=== PATIENT | male | born 1980 | race Caucasian/White ===

== ENCOUNTER → 2016-08-22 | Day surgery (SDC) | payer OTHER, BC ==
[~2016-08-22] MED LIST: Acetaminophen/HYDROcodone 325-5 MG Tab PO ONE; Bupivacaine 0.25% 30 ML SDV ONE; EPINEPHrine 1 MG/ML 30 ML MDV ONE; HYDROmorphone 0.5 MG/0.5 ML Syringe IVPUSH PRN; HYDROmorphone 1 MG/ML Syringe ONE; Lactated Ringers 1,000 ML IV SCH; Lactated Ringers 1,000 ML ONE; Lidocaine 1% 4 ML ONE; Lidocaine 1%/Sod Bicarbonate in NS 8.4% 1 ML Syringe PRN; Meperidine PF 50 MG/ML Syringe IVPUSH PRN; Midazolam 1 MG/ML 2 ML SDV ONE; Ondansetron 4 MG/2 ML SDV IVPUSH PRN; Ondansetron 4 MG/2 ML SDV ONE; Propofol 200 MG/20 ML SDV ONE; Sodium Chloride 0.9% 10 ML Syringe FLUSH PRN; ceFAZolin 1 GM Vial ONE; diphenhydrAMINE 50 MG/ML SDV IVPUSH PRN; fentaNYL 100 MCG/2 ML SDV IVPUSH PRN; fentaNYL 250 MCG/5 ML SDV ONE
--- NOTE | 2016-08-22 12:07 | PCM.PREANE ---
Preanesthetic Assessment - Anesthesia/Transfusion/Family Hx Anesthesia History: Prior Anesthesia Without Reaction Family History of Anesthesia Reaction: No Transfusion History: No Prior Transfusion(s) - Review of Systems General: No Symptoms Pulmonary: No Symptoms Cardiovascular: No Symptoms Gastrointestinal: No symptoms Neurological: No Symptoms Other: Reports: None - Physical Assessment NPO Status Date: 08/21/16 NPO Status Time: 23:55 Pulse: 70 O2 Sat by Pulse Oximetry: 98 Respiratory Rate: 18 Blood Pressure: 141/69 Temperature: 97.5 C Vital Signs: Last Vital Signs Temp 36.4 C 08/22/16 10:30 Pulse 70 08/22/16 10:30 Resp 18 08/22/16 10:30 BP 141/69 H 08/22/16 10:30 Pulse Ox 98 08/22/16 10:30 Height: 1.75 m Weight: 82.554 kg ASA Class: 2 Mental Status: Alert & Oriented x3 Airway Class: Mallampati = 1 Dentition: Reports: Normal Dentition Thyro-Mental Finger Breadths: 3 Mouth Opening Finger Breadths: 3 ROM/Head Extension: Full Lungs: Clear to auscultation, Normal respiratory effort Cardiovascular: Regular Rate, Regular Rhythm - Lab Values: Laboratory Last Values MRSA (PCR) Negative 08/09/16 11:39 - Allergies Allergies/Adverse Reactions: Allergies Allergy/AdvReac Type Severity Reaction Status Date / Time No Known Allergies Allergy Verified 06/09/15 22:35 - Anesthesia Plan Pre-Op Medication Ordered: None - Acknowledgements Anesthesia Type Planned: General Anesthesia Pt an Appropriate Candidate for the Planned Anesthesia: Yes Alternatives and Risks of Anesthesia Discussed w Pt/Guardian: Yes Pt/Guardian Understands and Agrees with Anesthesia Plan: Yes PreAnesthesia Questionnaire - Past Health History Medical/Surgical History: Denies Medical/Surgical History Musculoskeletal History: Reports: Other (See Below) Other Musculoskeletal History: R acl sprain - Past Surgical History HEENT Surgical History: Reports: Oral Surgery, Other (See Below) Other HEENT Surgeries/Procedures: wisdom teeth Musculoskeletal Surgical History: Reports: Other (See Below) Other Musculoskeletal Surgeries/Procedures:: right thump plate(orif) - SUBSTANCE USE Smoking Status *Q: Never Smoker Tobacco Use Within Last Twelve Months: Snuff/Dip Second Hand Smoke Exposure: No Days Per Week of Alcohol Use: 1 Number of Drinks Per Day: 0 Total Drinks Per Week: 0 Recreational Drug Use History: No - HOME MEDS Home Medications: Home Meds Multivitamin [Multivitamins] 1 cap PO DAILY 08/21/16 [History] - CURRENT (IN HOUSE) MEDS Current Meds: Current Medications Lactated Ringer's (Ringers, Lactated) 1,000 mls @ 125 mls/hr IV ASDIRECTED DAVID Stop: 08/22/16 23:00 Lidocaine/Sodium Bicarbonate (Buffered Lidocaine 1% In Ns 8.4%) 0.25 ml .XX ONETIME PRN PRN Reason: Prior to IV Start Stop: 08/22/16 18:00 Sodium Chloride (Saline Flush) 10 ml FLUSH ASDIRECTED PRN PRN Reason: Keep Vein Open Stop: 08/22/16 18:00
--- NOTE | 2016-08-22 15:16 | PCM.POSTAN ---
POST ANESTHESIA ASSESSMENT - MENTAL STATUS Mental Status: somnolent - VITAL SIGNS Pulse Rate: 68 SaO2: 94 Resp Rate: 11 Blood Pressure: 134/76 Temperature: 36.9 C - RESPIRATORY Respiratory Status: respiratory rate WNL, airway patent, O2 saturation stable, supplemental oxygen - CARDIOVASCULAR CV Status: pulse rate WNL, blood pressure stable - GASTROINTESTINAL GI Status: no symptoms - PAIN Pain Score: 0 - POST OP HYDRATION Hydration Status: adequate & stable
[2016-08-22 16:45] VITALS: BP 154/86
--- NOTE | 2016-08-23 07:50 | PCM.OPNOTE ---
- General Post-Op/Procedure Note Date of Surgery/Procedure: 08/22/16 Operative Procedure(s): right knee video arthroscopy with ACL allograft reconstruction Pre Op Diagnosis: right knee ACL rupture Post-Op Diagnosis: Same Anesthesia Technique: General LMA, Local Primary Surgeon: Amilcar Gary Anesthesia Provider: Austin Morel Field Coordinator: Caterina Sanchez Field Coordinator: Renate Carter EBL in mLs: 5 Complications: None Condition: Good Free Text/Narrative:: Intake & Output 08/22/16 08/23/16 08/23/16 22:59 06:59 14:59 Intake Total 500 Balance 500
--- NOTE | 2016-08-23 08:47 | OR ---
DATE OF OPERATION: 08/22/2016 SURGEON: Amilcar Gary MD OPERATION PERFORMED: Right knee video arthroscopy with anterior tibialis anterior cruciate ligament allograft reconstruction. PREOPERATIVE DIAGNOSIS: Right knee anterior cruciate ligament rupture. POSTOPERATIVE DIAGNOSIS: Right knee anterior cruciate ligament rupture. ANESTHESIA: General LMA with local. ANESTHESIA PROVIDER: Austin Morel. ASSISTANTS: Caterina Sanchez PA-C and Renate Carter LPN ESTIMATED BLOOD LOSS: 5 mL COMPLICATIONS: None. CONDITION: Stable. DESCRIPTION OF PROCEDURE: The patient was identified in the preop holding area. Proper site was marked and identified by the surgeon. The patient at that time decided he would like allograft reconstruction. The risks and benefits were again discussed with the patient. The patient was then taken back to the operating theater where after adequate anesthesia, the patient's right lower extremity was placed in a C-clamp otero after a nonsterile tourniquet was applied. The left lower extremity was placed in a well-leg otero and placed in a dependent position. Right lower extremity was then sterilely prepped and draped in usual sterile fashion. OR time-out was performed. The patient received 2 g IV Ancef. At this time, right lower extremity was exsanguinated and tourniquet was then inflated to 300 mmHg. Standard anterolateral portal was then created. Scope trocar was introduced. The patient had no significant chondromalacia noted at the patellofemoral joint. There were no loose foreign bodies in mediolateral gutter. Attention was turned to the medial compartment and anteromedial portal was then created with the use of a spinal needle. Medial compartment showed no signs of chondromalacia and no medial meniscus tear. In the notch, there was noted to be a completely disrupted ACL off the femoral side. On the lateral side, no chondromalacia and no lateral meniscus tear was noted. At this time, the graft was opened on the back table and Caterina Sanchez PA-C and Renate Carter LPN then whipstitched both sides of the graft for a creation of the allograft tendon, putting an Endobutton on the femoral side for fixation. While this was going on, the notch was cleared of the old ACL fibers. The tibial drill guide was then placed at 55 degrees. It was placed in the center of the old footprint. Guide pin was then placed after incision was made on the medial side of the tibia and guide pin was placed. A 9-mm reamer was then used for the tibial side. The FlipCutter set at 105 degrees was then introduced to the femoral side. This was placed on the posterior rim of the lateral femoral condyle and a 9-mm FlipCutter was then placed. It was found to be in adequate position and was brought back to a tunnel length of 25 mm. Excess bone was then removed from inside the joint. Graft was then passed up through the tibia into the femur and the Endobutton was flipped on the femoral side. C-arm fluoroscopy showed that the Endobutton was flipped in adequate position. This graft was then shuttled up into the femoral tunnel and was found to have adequate fixation in the femoral tunnel. Tension was applied to the graft and it was brought through a 20 cycles of range of motion of the knee. The patient had full extension and flexion with no blocked motion. There was no impingement noted on either the lateral femoral wall or the PCL. At this time, 4 5 screw with a washer was placed through the tibia and on the tibial side, the limbs of the suture were tied around the washer and the screw and this was then tightened. The patient had negative anterior drawer and the graft was found to have good tension. Adequate saline was irrigated through the wounds. Vicryl and Monocryl sutures used for closure of the skin. The patient was placed in a sterile soft dressing and a knee brace. The patient tolerated the procedure well and sent to PACU in stable condition. BUNNY /[id number]
--- NOTE | 2016-08-23 09:40 | CR ---
Right knee: Two fluoroscopic spot views were obtained of the right knee. Study obtained utilizing C-arm device. Comparison: Previous right knee radiograph of 06/06/16. Study shows findings of ACL repair. Fluoroscopy time is given as 3.7 seconds. Impression: 1. Procedural study as described above. Diagnostic code #2
== END | disposition home or self-care (01) ==
LOC: JD.SDS 10:23
PROVIDERS: ATTEND Orthopaedic Surgery
PROC: 0MQN4ZZ Repair Right Knee Bursa and Ligament, Percutaneous Endoscopic Approach (ICD-10-PCS; principal; 2016-08-22)
DX: S83.511D Sprain of anterior cruciate ligament of right knee, subsequent encounter (principal); Z98.890 Other specified postprocedural states
CPT/HCPCS: 29888; 76000; 87641; A9270; C1713; C1762; C1776; J0171; J0690; J1170; J2250; J2405; J3010; J7120; 01400; J2704; J3490

== ENCOUNTER 2019-04-11 10:06 | Emergency (ER) | payer BC, SELFPAY ==
[2019-04-11 10:41] VITALS: BP 125/72; PULSE 67
--- NOTE | 2019-04-11 12:05 | EDM.PDOC ---
ED HPI GENERAL MEDICAL PROBLEM - General Chief Complaint: Respiratory Problem Stated Complaint: RUNNY NOSE/CONGESTION/COUGH Time Seen by Provider: 04/11/19 11:05 Source of Information: Reports: Patient History Limitations: Reports: No Limitations - History of Present Illness INITIAL COMMENTS - FREE TEXT/NARRATIVE: Patient is a 38-year-old male who presents with complaints of dry cough, congestion, and generalized malaise for the last week. He denies any fever, however he has had chills intermittently. He does have some bilateral ear pain. Denies any significant shortness of breath. Has no history of asthma or other lung pathology. - Related Data Allergies Allergy/AdvReac Type Severity Reaction Status Date / Time No Known Allergies Allergy Verified 04/11/19 10:36 Home Meds: Home Meds Multivitamin [Multivitamins] 1 cap PO DAILY 08/21/16 [History] Codeine/Promethazine [Phenergan with Codeine] 5 ml PO Q4HR PRN #100 ml 04/11/19 [Rx] Past Medical History - Past Health History Medical/Surgical History: Denies Medical/Surgical History Musculoskeletal History: Reports: Other (See Below) Other Musculoskeletal History: R acl sprain - Past Surgical History HEENT Surgical History: Reports: Oral Surgery, Other (See Below) Other HEENT Surgeries/Procedures: wisdom teeth Musculoskeletal Surgical History: Reports: Other (See Below) Other Musculoskeletal Surgeries/Procedures:: right thump plate(orif) Social & Family History - Tobacco Use Smoking Status *Q: Current Every Day Smoker Years of Tobacco use: 20 Packs/Tins Daily: 0.5 - Caffeine Use Caffeine Use: Reports: Coffee - Recreational Drug Use Recreational Drug Use: No ED ROS GENERAL - Review of Systems Review Of Systems: Comprehensive ROS is negative, except as noted in HPI. ED EXAM, GENERAL - Physical Exam Exam: See Below Exam Limited By: No Limitations General Appearance: Alert, WD/WN, No Apparent Distress Ears: Normal External Exam, Normal Canal, Hearing Grossly Normal, Normal TMs Throat/Mouth: Normal Inspection, Normal Lips, Normal Teeth, Normal Gums, Normal Oropharynx, Normal Voice, No Airway Compromise Respiratory/Chest: No Respiratory Distress, Lungs Clear, Normal Breath Sounds, No Accessory Muscle Use, Chest Non-Tender Cardiovascular: Normal Peripheral Pulses, Regular Rate, Rhythm, No Edema, No Gallop, No JVD, No Murmur, No Rub GI/Abdominal: Normal Bowel Sounds, Soft, Non-Tender, No Organomegaly, No Distention, No Abnormal Bruit, No Mass Neurological: Alert, Oriented, CN II-XII Intact, Normal Cognition, Normal Gait, Normal Reflexes, No Motor/Sensory Deficits Psychiatric: Normal Affect, Normal Mood Skin Exam: Warm, Dry, Intact, Normal Color, No Rash Course - Vital Signs Last Recorded V/S: Last Vital Signs Temp 97.4 F 04/11/19 10:37 Pulse 67 04/11/19 10:37 Resp 12 04/11/19 10:37 BP 125/72 04/11/19 10:37 Pulse Ox 96 04/11/19 10:37 - Orders/Labs/Meds Orders: Active Orders 24 hr Category Date Time Status Chest 2V [CR] Stat Exams 04/11/19 11:26 Taken - Re-Assessments/Exams Free Text/Narrative Re-Assessment/Exam: 04/11/19 12:23 Chest x-ray was negative for any infiltrates. Influenza screen was also negative. Patient likely has a viral bronchitis. We will send a prescription for Phenergan with codeine for cough to [facility]. Discharge instructions as documented. Departure - Departure Time of Disposition: 12:23 Disposition: Home, Self-Care 01 Condition: Fair Clinical Impression: Viral illness - Discharge Information Prescriptions: Codeine/Promethazine [Phenergan with Codeine] 5 ml PO Q4HR PRN #100 ml PRN Reason: Cough Referrals: Kenneth Ruby Jr, MD [Primary Care Provider] - Forms: ED Department Discharge Additional Instructions: You were seen in the emergency department today for cough for the last week as well as congestion. Chest x-ray did not show any signs of pneumonia. Your influenza screen was negative. It is likely that you are suffering from a viral bronchitis. Symptoms of this illness generally take 10 to 14 days to resolve. A prescription for Phenergan with codeine for cough has been sent to [facility]. He may use this medication as prescribed for cough. Please be aware that it can be sedating so you should not drive or work after taking the medication. If you should experience any worsening symptoms or fail to improve as expected, please do not hesitate to return to the emergency department or follow-up with your primary care provider. Sepsis Event Note - Evaluation Sepsis Screening Result: No Definite Risk - Focused Exam Vital Signs: Vital Signs Temp Pulse Resp BP Pulse Ox 04/11/19 10:37 97.4 F 67 12 125/72 96 Date Exam was Performed: 04/11/19 Time Exam was Performed: 12:23 - My Orders Last 24 Hours: My Active Orders 04/11/19 11:26 Chest 2V [CR] Stat - Assessment/Plan Last 24 Hours: My Active Orders 04/11/19 11:26 Chest 2V [CR] Stat
--- NOTE | 2019-04-11 12:39 | CR ---
Chest: 2 views of the chest were obtained. Comparison: No prior chest imaging is available. Heart size and mediastinum are normal. Lungs are clear with no acute parenchymal change. Bony structures appear within normal limits. Impression: 1. Nothing acute is identified on 2 view chest x-ray. Diagnostic code #1 This report was dictated in [place] Standard Time
== END 2019-04-11 12:40 | disposition home or self-care (01) ==
LOC: JD.ED 10:06
DX: B34.9 Viral infection, unspecified (principal); F17.210 Nicotine dependence, cigarettes, uncomplicated
CPT/HCPCS: 71046; 71046-26; 87804; 99283; 99283-25

== ENCOUNTER 2019-06-18 04:09 | Emergency (ER) | payer BC, OTHER, SELFPAY ==
[2019-06-18] MEDS ORDERED: Ondansetron 4 MG/2 ML SDV IVPUSH ONE (04:36)
[2019-06-18] MEDS ORDERED: HYDROmorphone 1 MG/ML Syringe IVPUSH STA (04:36)
[2019-06-18] MEDS ORDERED: LORazepam 2 MG/ML SDV IVPUSH STA (04:37)
--- NOTE | 2019-06-18 04:43 | EDM.PDOC ---
ED HPI GENERAL MEDICAL PROBLEM - General Chief Complaint: Abdominal Pain Stated Complaint: abdominal pain Time Seen by Provider: 06/18/19 04:24 Source of Information: Reports: Patient History Limitations: Reports: No Limitations - History of Present Illness INITIAL COMMENTS - FREE TEXT/NARRATIVE: Mr. Cárdenas is a very pleasant 38-year-old man with no chronic medical problems, who now presents the ED stating that he developed sudden-onset generalized abdominal pain around 03:10 this morning, just after he urinated. He states that there is a constant pain whose character he cannot describe, as well as a sharp pain that comes and goes. When present, the sharp pain lasts only a few seconds. Initially, it came about every 20 minutes, but its frequency has since increased to about every 5 minutes. He experienced 2 episodes of the sharp pain in my presence. He states that the pain radiates up into his lower chest and down to his penis. No associated nausea, vomiting, constipation, diarrhea, or urinary symptoms. The patient states that he took 400 mg of [id number] ibuprofen around 03: 30. The patient states that he had a similar symptoms several years ago. Review of prior medical records finds that the patient was seen in this ED on 06/09/2015 with a complaint at that time of severe mid abdominal pain radiating up as well as down to his testicles. He reported at that time that he had had a similar episode about 10 years prior, given some morphine, and sent home without a cause being found. On examination, he was found to be tender all over his abdomen, with the greatest tenderness in the right lower quadrant. His pain seemed to be worse when he was made supine, improved when made recumbent. He was noted to be quite anxious. Work-up included a CBC, CMP, and CT of the abdomen and pelvis with oral and IV contrast. His work-up was entirely unremarkable. He was discharged home with a prescription for Levsin. Here in the ED, the patient appears to be very anxious. He is hemodynamically stable, afebrile, saturating 100% on room air. The patient's PCP is Dr. Kenneth Ruby. His Orthopedic Surgeon is Dr. Amilcar Gary. Abdomen Pain Score (Numeric/FACES): 10 - Related Data Allergies Allergy/AdvReac Type Severity Reaction Status Date / Time No Known Allergies Allergy Verified 06/18/19 04:22 Home Meds: Home Meds Multivitamin [Multivitamins] 1 cap PO DAILY 08/21/16 [History] Past Medical History - Past Surgical History HEENT Surgical History: Reports: Oral Surgery (3 wisdom teeth extracted) Musculoskeletal Surgical History: Reports: Arthroscopic Knee (right), ORIF ( right thumb) Social & Family History - Tobacco Use Smoking Status *Q: Never Smoker Tobacco Use Within Last Twelve Months: Smokeless Tobacco (Chews about 1/2 can per day) - Caffeine Use Caffeine Use: Reports: Coffee - Alcohol Use Alcohol Use History: Yes Alcohol Use Frequency: Socially - Recreational Drug Use Recreational Drug Use: No - Living Situation & Occupation Living situation: Reports: , with Spouse, Other (1 child) Occupation: Employed (Teacher) ED ROS GENERAL - Review of Systems Review Of Systems: Comprehensive ROS is negative, except as noted in HPI. ED EXAM, GI/ABD - Physical Exam Exam: See Below Exam Limited By: No Limitations General Appearance: Alert, WD/WN, Anxious (Very) Eyes: Bilateral: Normal Appearance, EOMI Ears: Normal External Exam, Hearing Grossly Normal Nose: Normal Inspection Throat/Mouth: Normal Inspection, Normal Lips, Normal Voice, No Airway Compromise Head: Atraumatic, Normocephalic Neck: Normal Inspection, Full Range of Motion Respiratory/Chest: No Respiratory Distress, Lungs Clear, Normal Breath Sounds, No Accessory Muscle Use, Chest Non-Tender Cardiovascular: Normal Peripheral Pulses, Regular Rate, Rhythm, No Edema, No Gallop, No JVD, No Murmur, No Rub GI/Abdominal Exam: Normal Bowel Sounds, Soft, No Organomegaly, No Distention, No Abnormal Bruit, No Mass, Tender (Generalized tenderness, but exquisite, with guarding in the epigastrium) (Male) Exam: Deferred Rectal (Males) Exam: Deferred Back Exam: Normal Inspection, Full Range of Motion. No: CVA Tenderness (L), CVA Tenderness (R) Extremities: Normal Inspection, Normal Range of Motion, No Pedal Edema, Normal Capillary Refill Neurological: Alert, Oriented, Normal Cognition, No Motor/Sensory Deficits Psychiatric: Anxious Skin Exam: Warm, Dry, Intact, Normal Color, No Rash Course - Vital Signs Last Recorded V/S: Last Vital Signs Temp 36.1 C 06/18/19 04:18 Pulse 78 06/18/19 04:18 Resp 20 06/18/19 04:18 BP 143/84 H 06/18/19 04:18 Pulse Ox 100 06/18/19 04:18 - Orders/Labs/Meds Orders: Active Orders 24 hr Category Date Time Status Sodium Chloride 0.9% [Normal Saline] 1,000 ml Med 06/18/19 04:45 Active IV ASDIRECTED Medication Orders Sodium Chloride (Normal Saline) 1,000 mls @ 150 mls/hr IV ASDIRECTED DAVID Last Admin: 06/18/19 04:46 Dose: 150 mls/hr Labs: Laboratory Tests 06/18/19 06/18/19 06/18/19 Range/Units 04: 04:20 07:30 WBC 7.28 (4.23-9.07) K/mm3 RBC 5.00 (4.63-6.08) M/mm3 Hgb 16.4 (13.7-17.5) gm/dl Hct 46.6 (40.1-51.0) % MCV 93.2 H (79.0-92.2) fl MCH 32.8 H (25.7-32.2) pg MCHC 35.2 (32.2-35.5) g/dl RDW Std Deviation 41.2 (35.1-43.9) fL Plt Count 311 (163-337) K/mm3 MPV 9.6 (9.4-12.3) fl Neutrophils % (Manual) 34 L (40-60) % Band Neutrophils % 0 (0-10) % Lymphocytes % (Manual) 38 (20-40) % Atypical Lymphs % 17 % Monocytes % (Manual) 10 (2-10) % Eosinophils % (Manual) 1 (0.8-7.0) % Basophils % (Manual) 0 L (0.2-1.2) Platelet Estimate Adequate Plt Morphology Comment Normal RBC Morph Comment Normal Sodium 142 (136-145) mEq/L Potassium 3.2 L (3.5-5.1) mEq/L Chloride 104 (98-107) mEq/L Carbon Dioxide 23 (21-32) mEq/L Anion Gap 18.2 H (5-15) BUN 15 (7-18) mg/dL Creatinine 1.3 (0.7-1.3) mg/dL Est Cr Clr Drug Dosing 76.29 mL/min Estimated GFR (MDRD) > 60 (>60) mL/min BUN/Creatinine Ratio 11.5 L (14-18) Glucose 130 H (74-106) mg/dL Calcium 9.1 (8.5-10.1) mg/dL Total Bilirubin 0.4 (0.2-1.0) mg/dL AST 15 (15-37) U/L ALT 12 L (16-63) U/L Alkaline Phosphatase 60 (46-116) U/L Total Protein 7.0 (6.4-8.2) g/dl Albumin 4.0 (3.4-5.0) g/dl Globulin 3.0 gm/dL Albumin/Globulin Ratio 1.3 (1-2) Lipase 109 (73-393) U/L Urine Color Yellow (Yellow) Urine Appearance Clear (Clear) Urine pH 6.5 (5.0-8.0) Ur Specific [place] 1.015 (1.005-1.030) Urine Protein Negative (Negative) Urine Glucose (UA) Negative (Negative) Urine Ketones Negative (Negative) Urine Occult Blood Negative (Negative) Urine Nitrite Negative (Negative) Urine Bilirubin Negative (Negative) Urine Urobilinogen 0.2 (0.2-1.0) Ur Leukocyte Esterase Negative (Negative) Urine RBC Not seen (0-5) /hpf Urine WBC Not seen (0-5) /hpf Ur Squamous Epith Cells 0-5 (0-5) /hpf Urine Bacteria Not seen (FEW) /hpf Urine Mucus Not seen (FEW) /hpf Meds: Medications Generic Name Dose Route Start Last Admin Trade Name Freq PRN Reason Stop Dose Admin Sodium Chloride 1,000 mls @ 150 mls/hr 06/18/19 04:45 06/18/19 04:46 Normal Saline IV 150 mls/hr ASDIRECTED DAVID Administration Discontinued Medications Generic Name Dose Route Start Last Admin Trade Name Freq PRN Reason Stop Dose Admin Hydromorphone HCl 0.5 mg 06/18/19 04:36 06/18/19 04:51 Dilaudid IVPUSH 06/18/19 04:37 0.5 mg ONETIME STA Administration Lorazepam 0.5 mg 06/18/19 04:37 06/18/19 04:49 Ativan IVPUSH 06/18/19 04:38 0.5 mg ONETIME STA Administration Ondansetron HCl 4 mg 06/18/19 04:36 04/24/20 04:46 Zofran IVPUSH 06/18/19 04:37 4 mg ONETIME ONE Administration Potassium Chloride 40 meq 06/18/19 06:47 06/18/19 06:57 Klor-Con M20 PO 06/18/19 06:48 40 meq ONETIME ONE Administration - Re-Assessments/Exams Free Text/Narrative Re-Assessment/Exam: 06/18/19 04:38 The sudden onset of the patient's pain, and his report that it radiates to his penis suggests a ureterolith, however, he reports that his pain is felt all over his abdomen, even going up into his lower chest, and he is extremely tender in the epigastrium, denies radiation into his back, and he has no CVA tenderness, which is not consistent with a ureterolith. Acute pancreatitis or a paraesophageal hernia are possibilities. Biliary colic or GERD are also possible. Less likely would be mesenteric ischemia. I have ordered a work-up and include blood work, a urinalysis, and a CT scan of his abdomen and pelvis with oral and IV contrast. In the meantime, he will be treated with IV Dilaudid , IV lorazepam, IV Zofran, and IV fluid. 06/18/19 06:37 The patient's CBC is unremarkable. His CMP is remarkable for a potassium depressed at 3.2 and an anion gap elevated at 18.2 with a bicarbonate normal at 23. His blood glucose is elevated at 130, with the remainder of his CMP being unremarkable. His lipase level is within normal limits at 109. CT of the abdomen and pelvis with oral and IV contrast as read by [facility] as "No acute abnormality identified." The patient has not yet provided a urine sample. Based on the above, I will order 40 mEq of oral KCl. 06/18/19 06:47 Test results thus far discussed with the patient. Following the IV Dilaudid, IV Ativan, IV Zofran, and IV fluid, he states that he is now feeling completely back to normal. I would still like to check a urinalysis before discharging him home. 06/18/19 08:37 The patient's urinalysis is unremarkable. Test results discussed with the patient. He states that he continues to feel completely back to normal. The cause of his abdominal pain is unknown, however , the patient states that he has passed a lot of gas, and perhaps his pain was due to gas. Departure - Departure Time of Disposition: 08:38 Disposition: Home, Self-Care 01 Condition: Good Clinical Impression: Abdominal gas pain - Discharge Information *PRESCRIPTION DRUG MONITORING PROGRAM REVIEWED*: Not Applicable *COPY OF PRESCRIPTION DRUG MONITORING REPORT IN PATIENT TANIA: Not Applicable Referrals: Kenneth Ruby Jr, MD [Ordering Only Provider] - Amilcar Gary MD [Physician] - Forms: ED Department Discharge Additional Instructions: You were seen in the emergency room after developing extreme generalized abdominal pain. Work-up in the ER included blood work, a urinalysis, and a CT scan of your abdomen and pelvis with oral and IV contrast. Your blood work found your potassium to be low at 3.2, likely as a result of hyperventilation. You were given oral replacement potassium in the ER. The remainder of your work-up was unremarkable, and does not explain the cause of your pain. Based on your history, physical exam, and ER tests, your pain was most likely due to intestinal gas. If any other problems, please do not hesitate to return to the ER. Sepsis Event Note - Evaluation Sepsis Screening Result: No Definite Risk - Focused Exam Vital Signs: Vital Signs Temp Pulse Resp BP Pulse Ox 06/18/19 04:18 36.1 C 78 20 143/84 H 100 Date Exam was Performed: 06/18/19 Time Exam was Performed: 08:37 - My Orders Last 24 Hours: My Active Orders 06/18/19 04:45 Sodium Chloride 0.9% [Normal Saline] 1,000 ml IV ASDIRECTED - Assessment/Plan Last 24 Hours: My Active Orders 06/18/19 04:45 Sodium Chloride 0.9% [Normal Saline] 1,000 ml IV ASDIRECTED
[2019-06-18] MEDS ORDERED: Sodium Chloride 0.9% 1,000 ML IV SCH (04:45)
[2019-06-18 04:55] VITALS: BP 143/84; PULSE 78
[2019-06-18] MEDS ORDERED: Potassium Chloride 20 MEQ Tab.ER PO ONE (06:47)
--- NOTE | 2019-06-18 08:25 | CT ---
CT abdomen and pelvis Technique: Multiple axial sections were obtained from above the dome of the diaphragm inferiorly through the pubic symphysis. Intravenous and oral contrast was utilized. Delayed images were obtained through the bladder. Comparison: Prior CT abdomen and pelvis study of 06/10/15. Findings: Visualized lung bases show nothing acute. Liver contains no focal abnormality. Gallbladder contains no calcified gallstones. Adrenal glands show no nodule. Kidneys show symmetric contrast enhancement without hydronephrosis or mass. Aorta shows no aneurysm. No retroperitoneal adenopathy or mesenteric abnormalities are seen. No No pelvic mass or adenopathy is seen. Appendix is visualized and appears to be normal. Mild increased stool is noted within the colon. No free fluid or inflammatory change is seen. Delayed images shows contrast within the distal ureters and within the bladder. Bone window settings were reviewed which shows disc space narrowing and diffuse posterior disc bulging at L5-S1. No acute osseous finding is seen. Impression: 1. Mild increased stool within the colon. 2. Other findings as noted above. 3. Nothing acute is seen. Diagnostic code #2 This report was dictated in MDT I agree with preliminary report from [facility], finalized on 06/18/19, 7:35 AM Central Daylight Time
== END 2019-06-18 08:45 | disposition home or self-care (01) ==
LOC: JD.ED 04:09
DX: R14.3 Flatulence (principal)
CPT/HCPCS: 36415; 74177; 80053; 81001; 83690; 85007; 85027; 96361; 96374; 96375; 99284; A9270; J1170; J2060; J2405; J7030

== ENCOUNTER 2020-02-23 15:26 | Emergency (ER) | payer BC ==
[2020-02-23 15:44] VITALS: BP 142/81; PULSE 59
[2020-02-23] MEDS ORDERED: Sodium Chloride 0.9% 10 ML Syringe FLUSH PRN (15:50)
[2020-02-23] MEDS ORDERED: Aspirin 81 MG Tab.Chew PO ONE (15:50)
--- NOTE | 2020-02-23 15:58 | EDM.PDOC ---
ED HPI GENERAL MEDICAL PROBLEM - General Chief Complaint: Chest Pain Stated Complaint: CHEST PAIN/ARM PAIN/SHOULDER PAIN Time Seen by Provider: 02/23/20 15:33 Source of Information: Reports: Patient History Limitations: Reports: No Limitations - History of Present Illness INITIAL COMMENTS - FREE TEXT/NARRATIVE: The patient presents with left shoulder, and left chest pain. This also radiated to his left jaw. He had the shoulder pain yesterday. Today around noon he got lightheaded and then developed the left sided chest pain and it went into his shoulder and jaw. He has no shortness of breath with it. He has no fever, chills, cough, congestion, runny nose, abdominal pain, nausea or vomiting. He has no history of heart disease. He does not smoke. He has no history of hypertension or hypercholesterolemia. Onset: Gradual Duration: Day(s): (Yesterday) Location: Reports: Chest, Upper Extremity, Left (shoulder) Quality: Reports: Sharp Severity: Moderate Improves with: Reports: None Worsens with: Reports: None Associated Symptoms: Reports: Chest Pain. Denies: Confusion, Cough, Diaphoresis, Fever/Chills, Headaches, Nausea/Vomiting, Shortness of Breath Left Chest Pain Score (Numeric/FACES): 3 - Related Data Allergies Allergy/AdvReac Type Severity Reaction Status Date / Time No Known Allergies Allergy Verified 06/18/19 04:22 Home Meds: Home Meds Multivitamin [Multivitamins] 1 cap PO DAILY 08/21/16 [History] Vitamin E 400 unit PO DAILY 02/23/20 [History] Past Medical History - Past Health History Medical/Surgical History: Denies Medical/Surgical History Musculoskeletal History: Reports: Other (See Below) Other Musculoskeletal History: R acl sprain - Past Surgical History HEENT Surgical History: Reports: Oral Surgery Other HEENT Surgeries/Procedures: wisdom teeth Musculoskeletal Surgical History: Reports: Arthroscopic Knee, ORIF Other Musculoskeletal Surgeries/Procedures:: right thump plate(orif) Social & Family History - Tobacco Use Tobacco Use Status *Q: Current Every Day Tobacco User Years of Tobacco use: 20 Packs/Tins Daily: 0.5 - Caffeine Use Caffeine Use: Reports: Coffee - Recreational Drug Use Recreational Drug Use: No - Living Situation & Occupation Living situation: Reports: , with Spouse, Other (1 child) Occupation: Employed (Teacher) ED ROS GENERAL - Review of Systems Review Of Systems: See Below Constitutional: Reports: No Symptoms HEENT: Reports: No Symptoms Respiratory: Reports: No Symptoms Cardiovascular: Reports: Chest Pain Endocrine: Reports: No Symptoms GI/Abdominal: Reports: No Symptoms : Reports: No Symptoms Musculoskeletal: Reports: Shoulder Pain (left), Other (Jaw pain) ED EXAM, GENERAL - Physical Exam Exam: See Below Exam Limited By: No Limitations General Appearance: Alert, No Apparent Distress Ears: Normal External Exam Nose: Normal Inspection Head: Atraumatic, Normocephalic Neck: Normal Inspection Respiratory/Chest: No Respiratory Distress, Lungs Clear, Normal Breath Sounds Cardiovascular: Regular Rate, Rhythm, No Edema, No Murmur GI/Abdominal: Soft, Non-Tender, No Organomegaly, No Mass Back Exam: Normal Inspection Extremities: Other (Mild pain upon palpation to the top of the shoulder) Neurological: Alert, Oriented, No Motor/Sensory Deficits #1 Interpretation EKG Date: 02/23/20 Time: 15:55 Rhythm: NSR Rate (Beats/Min): 59 [place]: Normal P-Wave: Present QRS: Normal ST-T: Normal QT: Normal Course - Vital Signs Last Recorded V/S: Last Vital Signs Temp 97.7 F 02/23/20 15:43 Pulse 59 L 02/23/20 15:43 Resp 12 02/23/20 15:43 BP 142/81 H 02/23/20 15:43 Pulse Ox 100 02/23/20 15:43 - Orders/Labs/Meds Orders: Active Orders 24 hr Category Date Time Status Cardiac Monitoring [RC] . DIRECTED Care 02/23/20 15:50 Active EKG Documentation Completion [RC] ASDIRECTED Care 02/23/20 15:50 Active EKG Documentation Completion [RC] STAT Care 02/23/20 15:51 Active Peripheral IV Care [RC] . DIRECTED Care 02/23/20 15:51 Active Sodium Chloride 0.9% [Saline Flush] Med 02/23/20 15:50 Active 10 ml FLUSH ASDIRECTED PRN Peripheral IV Insertion Adult [OM.PC] Stat Oth 02/23/20 15:50 Ordered EKG 12 Lead [EK] Stat Ther 02/23/20 15:50 Ordered Medication Orders Sodium Chloride (Saline Flush) 10 ml FLUSH ASDIRECTED PRN PRN Reason: Keep Vein Open Labs: Laboratory Tests 02/23/20 02/23/20 02/23/20 Range/Units 16:05 16:05 16:05 WBC 7.43 (4.23-9.07) K/mm3 RBC 5.07 (4.63-6.08) M/mm3 Hgb 16.3 (13.7-17.5) gm/dl Hct 47.2 (40.1-51.0) % MCV 93.1 H (79.0-92.2) fl MCH 32.1 (25.7-32.2) pg MCHC 34.5 (32.2-35.5) g/dl RDW Std Deviation 41.1 (35.1-43.9) fL Plt Count 292 (163-337) K/mm3 MPV 9.4 (9.4-12.3) fl Neut % (Auto) 61.3 (34.0-67.9) % Lymph % (Auto) 27.1 (21.8-53.1) % [place] % (Auto) 9.0 (5.3-12.2) % Eos % (Auto) 1.1 (0.8-7.0) Baso % (Auto) 1.1 (0.1-1.2) % Neut # (Auto) 4.56 (1.78-5.38) K/mm3 Lymph # (Auto) 2.01 (1.32-3.57) K/mm3 [place] # (Auto) 0.67 (0.30-0.82) K/mm3 Eos # (Auto) 0.08 (0.04-0.54) K/mm3 Baso # (Auto) 0.08 (0.01-0.08) K/mm3 D-Dimer, Quantitative < 0.19 L (0.19-0.50) mg/L Sodium 141 (136-145) mEq/L Potassium 4.1 (3.5-5.1) mEq/L Chloride 106 (98-107) mEq/L Carbon Dioxide 29 (21-32) mEq/L Anion Gap 10.1 (5-15) BUN 14 (7-18) mg/dL Creatinine 1.3 (0.7-1.3) mg/dL Est Cr Clr Drug Dosing 75.53 mL/min Estimated GFR (MDRD) > 60 (>60) mL/min BUN/Creatinine Ratio 10.8 L (14-18) Glucose 80 (74-106) mg/dL Calcium 9.4 (8.5-10.1) mg/dL Total Bilirubin 0.5 (0.2-1.0) mg/dL AST 14 L (15-37) U/L ALT 22 (16-63) U/L Alkaline Phosphatase 63 (46-116) U/L Troponin I < 0.017 (0.00-0.056) ng/mL Total Protein 7.2 (6.4-8.2) g/dl Albumin 4.0 (3.4-5.0) g/dl Globulin 3.2 gm/dL Albumin/Globulin Ratio 1.3 (1-2) Meds: Medications Generic Name Dose Route Start Last Admin Trade Name Freq PRN Reason Stop Dose Admin Sodium Chloride 10 ml 02/23/20 15:50 Saline Flush FLUSH ASDIRECTED PRN Keep Vein Open Discontinued Medications Generic Name Dose Route Start Last Admin Trade Name Freq PRN Reason Stop Dose Admin Aspirin 324 mg 02/23/20 15:50 Aspirin PO 02/23/20 15:51 ONETIME ONE - Re-Assessments/Exams Free Text/Narrative Re-Assessment/Exam: 02/23/20 16:01 I ordered an IV saline lock, aspirin, EKG, CXR and labs. 02/23/20 17:01 His EKG shows a NSR with no acute changes. His CXR looks good. His CBC and CMP look good. His troponin and D-dimer are negative. Departure - Departure Time of Disposition: 17:05 Disposition: Home, Self-Care 01 Condition: Good Clinical Impression: Atypical chest pain Referrals: Kenneth Ruby Jr, MD [Primary Care Provider] - 1 Week Forms: ED Department Discharge Additional Instructions: Take tylenol or motrin for any pain. Follow up with your doctor. Please return if you are worse. Sepsis Event Note (ED) - Evaluation Sepsis Screening Result: No Definite Risk - Focused Exam Vital Signs: Vital Signs Temp Pulse Resp BP Pulse Ox 02/23/20 15:43 97.7 F 59 L 12 142/81 H 100 - My Orders Last 24 Hours: My Active Orders 02/23/20 15:50 Cardiac Monitoring [RC] . DIRECTED EKG Documentation Completion [RC] ASDIRECTED Sodium Chloride 0.9% [Saline Flush] 10 ml FLUSH ASDIRECTED PRN Peripheral IV Insertion Adult [OM.PC] Stat EKG 12 Lead [EK] Stat 02/23/20 15:51 EKG Documentation Completion [RC] STAT Peripheral IV Care [RC] . DIRECTED - Assessment/Plan Last 24 Hours: My Active Orders 02/23/20 15:50 Cardiac Monitoring [RC] . DIRECTED EKG Documentation Completion [RC] ASDIRECTED Sodium Chloride 0.9% [Saline Flush] 10 ml FLUSH ASDIRECTED PRN Peripheral IV Insertion Adult [OM.PC] Stat EKG 12 Lead [EK] Stat 02/23/20 15:51 EKG Documentation Completion [RC] STAT Peripheral IV Care [RC] . DIRECTED
--- NOTE | 2020-02-23 16:30 | CR ---
Chest: 2 views of the chest were obtained. Comparison: Prior chest x-ray of 04/11/19. Heart size and mediastinum are normal. Lungs are clear with no acute parenchymal change. Bony structures appear within normal limits for the patient's age. Impression: 1. Nothing acute is appreciated on 2 view chest x-ray. Diagnostic code #1
== END 2020-02-23 17:15 | disposition home or self-care (01) ==
LOC: JD.ED 15:26
DX: R07.89 Other chest pain (principal); F17.210 Nicotine dependence, cigarettes, uncomplicated
CPT/HCPCS: 36415; 71046; 71046-26; 80053; 84484; 85025; 85379; 93005; 99285-25

== ENCOUNTER 2021-09-14 05:49 | Emergency (ER) | payer BC ==
[2021-09-14] MEDS ORDERED: Sodium Chloride 0.9% 10 ML Syringe FLUSH PRN (06:22)
[2021-09-14] MEDS ORDERED: Ondansetron 4 MG/2 ML SDV IVPUSH ONE (06:22)
[2021-09-14] MEDS ORDERED: HYDROmorphone 0.5 MG/0.5 ML Syringe IVPUSH ONE (06:22)
[2021-09-14] MEDS ORDERED: Sodium Chloride 0.9% 1,000 ML IV SCH (06:30)
[2021-09-14 09:28] VITALS: BP 140/74; PULSE 93
== END 2021-09-14 08:45 | disposition home or self-care (01) ==
LOC: JD.ED 05:49
DX: R10.30 Lower abdominal pain, unspecified (principal); R10.10 Upper abdominal pain, unspecified; F17.210 Nicotine dependence, cigarettes, uncomplicated; Z79.899 Other long term (current) drug therapy
CPT/HCPCS: 36415; 74019; 80053; 81003; 85025; 86140; 96374; 96375; 99284; J1170; J2405; J3490; J7030

== ENCOUNTER 2023-01-07 05:57 | Emergency (ER) | payer BC ==
[2023-01-07] MEDS ORDERED: Ondansetron 4 MG/2 ML SDV IVPUSH ONE (06:33)
[2023-01-07] MEDS ORDERED: Ketorolac 15 MG/ML SDV ONE (06:39)
[2023-01-07 06:43] LABS: BASOPHILS ABSOLUTE AUTO 0.1 K/mm3 (0.0-0.2); BASOPHILS PERCENT AUTO 0.7 % (0.0-1.0); EOSINOPHILS ABSOLUTE AUTO 0.1 K/mm3 (0.0-0.4); EOSINOPHILS PERCENT AUTO 0.7 % (0.0-6.0); HEMATOCRIT 48.3 % (42.0-52.0); HEMOGLOBIN 17.6 gm/dl (14.0-18.0); IMMATURE GRAN ABSOLUTE AUTO 0.04 K/mm3 (0.00-0.05); IMMATURE GRAN PERCENT AUTO 0.6 % (0.0-0.4); LYMPHOCYTES ABSOLUTE AUTO 2.3 K/mm3 (1.0-4.8); MEAN CORPUSCULAR HEMOGLOBIN 33.1 pg (28.0-32.0); MEAN CORPUSCULAR HGB CONC 36.4 g/dl (32.0-36.0); MEAN CORPUSCULAR VOLUME 90.8 fl (83.0-99.0); MEAN PLATELET VOLUME 8.9 fl (9.4-12.4); MONOCYTES ABSOLUTE AUTO 0.5 K/mm3 (0.0-0.8); MONOCYTES PERCENT AUTO 7.3 % (0.0-8.0); NEUTROPHILS ABSOLUTE AUTO 4.2 K/mm3 (1.8-7.7); NEUTROPHILS PERCENT AUTO 58.7 % (41.0-71.0); PLATELET COUNT,PLT 304 K/mm3 (150-400); RED BLOOD CELL COUNT 5.32 M/mm3 (4.52-5.90); WHITE BLOOD CELL COUNT,WBC 7.22 K/mm3 (3.9-11.3)
[2023-01-07] MEDS ORDERED: Sodium Chloride 0.9% 10 ML Syringe FLUSH PRN (06:54)
[2023-01-07] MEDS ORDERED: HYDROmorphone 0.5 MG/0.5 ML Syringe ONE (06:54)
[2023-01-07] MEDS ORDERED: HYDROmorphone 0.5 MG/0.5 ML Syringe IVPUSH ONE ×2 (06:56→08:39)
[2023-01-07] MEDS ORDERED: Sodium Chloride 0.9% 1,000 ML IV SCH (07:00)
[2023-01-07 07:06] LABS: A/G RATIO 1.3 (1-2); ALBUMIN 4.2 g/dl (3.4-5.0); ANION GAP 18.9 (5-15); BILIRUBIN TOTAL 0.8 mg/dL (0.2-1.0); BUN/CREATININE RATIO 12.5 (14-18); CALCIUM 9.8 mg/dL (8.5-10.1); CREATININE 1.2 mg/dL (0.7-1.3); EST CRCL DRUG DOSING (CG) 79.37 mL/min; POTASSIUM,K 3.9 mEq/L (3.5-5.1); PROTEIN TOTAL,TP 7.4 g/dl (6.4-8.2)
[2023-01-07 09:58] LABS: APPEARANCE,URINE CLEAR (Clear); BILIRUBIN,URINE NEGATIVE (Negative); COLOR,URINE YELLOW (Yellow); GLUCOSE,URINE NEGATIVE (Negative); KETONES,URINE 2+ (Negative); LEUKOCYTE ESTERASE,URINE NEGATIVE (Negative); NITRITE,URINE NEGATIVE (Negative); OCCULT BLOOD,URINE NEGATIVE (Negative); PROTEIN,URINE TRACE (Negative); UROBILINOGEN,URINE 0.2 (0.2-1.0)
[2023-01-07 11:14] LABS: BACTERIA,URINE FEW /hpf (FEW); EPITHELIAL CELLS,URINE 0-5 /hpf (0-5); MUCUS,URINE MODERATE /hpf (FEW); RBC,URINE 0-5 /hpf (0-5); WBC,URINE 0-5 /hpf (0-5)
[2023-01-07 11:52] VITALS: BP 121/68; PULSE 68
== END 2023-01-07 11:51 | disposition home or self-care (01) ==
LOC: JD.ED 05:57
DX: R10.30 Lower abdominal pain, unspecified (principal); R11.2 Nausea with vomiting, unspecified
CPT/HCPCS: 36415; 74176; 80053; 81001; 83690; 85025; 87086; 96361; 96374; 96375; 96376; 99284; J1170; J1885; J2405; J3490; J7030

== ENCOUNTER 2024-11-03 20:16 | Emergency (ER) | payer BC, OTHER ==
[2024-11-03] MEDS: Acetaminophen/HYDROcodone 325-5 MG Tab PO ONE (21:22)
[2024-11-03] MEDS: Diphtheria,Pertussis(Acell),Tetanus Vaccine 0.5 ML Syringe IM ONE (21:23)
[2024-11-03] MEDS: Silver Sulfadiazine 1% Crm 400 GM Jar TOP ONE (21:24)
[2024-11-03 21:47] VITALS: BP 142/86; PULSE 78
== END 2024-11-03 21:47 | disposition home or self-care (01) ==
LOC: JD.ED 20:16
DX: T24.522A Corrosion of first degree of left knee, initial encounter (principal); T24.521A Corrosion of first degree of right knee, initial encounter; Z79.899 Other long term (current) drug therapy; Z23 Encounter for immunization
CPT/HCPCS: 16000; 90471; 90715; 99283; A9270

== ENCOUNTER 2024-11-07 19:35 | Emergency (ER) | payer BC, OTHER ==
[2024-11-07 21:21] VITALS: BP 128/78; PULSE 77
== END 2024-11-07 20:39 | disposition home or self-care (01) ==
LOC: JD.ED 19:35
DX: T54.3X1D Toxic effect of corrosive alkalis and alkali-like substances, accidental (unintentional), subsequent encounter (principal); T24.7 Corrosion of third degree of lower limb, except ankle and foot; T24.70 Corrosion of third degree of unspecified site of lower limb, except ankle and foot; Z79.899 Other long term (current) drug therapy
CPT/HCPCS: 99282